=== PATIENT | female | born 1980 | race Caucasian/White ===

== ENCOUNTER 2017-10-20 18:00 | Emergency (ER) | payer OTHER, BC ==
[2017-10-20 18:06] VITALS: BP 146/93
[2017-10-20] MEDS ORDERED: SILVER SULFADIAZINE 1% CREAM 25 GM TP ONE (18:21)
[2017-10-20] MEDS ORDERED: IBUPROFEN 800 MG TABLET PO ONE (18:21)
--- NOTE | 2017-10-20 18:25 | ER Document Report ---
HPI - HPI Patient complains to provider of: burn Onset: This afternoon Onset/Duration: Sudden Quality of pain: Burning Pain Level: 4 Context: Patient states that she was attempting to help move a lawnmower and fell landing with her hand on the exhaust. Patient complains of burn to palmar surface of her left hand. Patient's tetanus immunization is currently up-to- date. Associated Symptoms: Other - Left hand burn Exacerbated by: Movement Relieved by: Denies Similar symptoms previously: No Recently seen / treated by doctor: No - ROS ROS below otherwise negative: Yes Systems Reviewed and Negative: Yes All other systems reviewed and negative - CONSTITUTIONAL Constitutional: DENIES: Fever, Chills - REPRODUCTIVE Reproductive: DENIES: : - MUSCULOSKELETAL Musculoskeletal: REPORTS: Extremity pain - DERM Skin Color: Normal Skin Problems: Burn Past Medical History - General Information source: Patient - Social History Smoking Status: Current Some Day Smoker Smoking Education Provided: Yes Frequency of alcohol use: None Drug Abuse: None Occupation: Retail Family History: Reviewed & Not Pertinent Pulmonary Medical History: Denies: Hx Tuberculosis Neurological Medical History: Reports: Hx Migraine Musculoskeltal Medical History: Reports Hx Arthritis, Reports Hx Fibromyalgia Skin Medical History: Reports Hx Cellulitis Psychiatric Medical History: Reports: Hx Anxiety, Hx Bipolar Disorder, Hx Depression Traumatic Medical History: Reports: Hx Fractures - ankle Past Surgical History: Reports: Hx Gynecologic Surgery, Hx Orthopedic Surgery, Hx Tubal Ligation. Denies: Hx Pacemaker - Immunizations Immunizations up to date: Yes Hx Diphtheria, Pertussis, Tetanus Vaccination: Yes Vertical Provider Document - CONSTITUTIONAL Agree With Documented VS: Yes Exam Limitations: No Limitations General Appearance: WD/WN, No Apparent Distress - INFECTION CONTROL TRAVEL OUTSIDE OF THE [place] IN LAST 30 DAYS: No - HEENT HEENT: Atraumatic, Normocephalic - NECK Neck: Normal Inspection - RESPIRATORY Respiratory: No Respiratory Distress - CARDIOVASCULAR Pulses: Normal: Radial - MUSCULOSKELETAL/EXTREMETIES Musculoskeletal/Extremeties: MAEW, FROM, Tender - Left hand tenderness to palmar surface - NEURO Level of Consciousness: Awake, Alert, Appropriate Motor/Sensory: No Motor Deficit - DERM Integumentary: Warm, Dry Notes: Burn to palmar surface of left hand covering about two thirds surface of the palm, patient with superficial perez to the palmar surface of all fingertips, no blistering to fingers, patient with blistering to palmar burn. Course - Re-evaluation Re-evalutation: 10/20/17 18:[address] Choudhury regarding patient presentation and management. - Vital Signs Vital signs: Temp Pulse Resp BP Pulse Ox 98.6 F 100 20 146/93 H 95 10/20/17 18:05 10/20/17 18:05 10/20/17 18:05 10/20/17 18:05 10/20/17 18:05 Discharge - Discharge Clinical Impression: Burn of hand Qualifiers: Encounter type: initial encounter Burn of hand location: multiple sites Laterality: left Burn degree: partial thickness (2nd degree) Qualified Code(s): T23.292A - Burn of second degree of multiple sites of left wrist and hand, initial encounter Condition: Stable Disposition: HOME, SELF-CARE Instructions: Perez ([facility]), Oral Narcotic Medication ([facility]), Silvadene Cream ([facility] ) Additional Instructions: Return immediately for any new or worsening symptoms Followup with your primary care provider, call tomorrow to make a followup appointment Follow-up with the wound clinic for management of your hand burn. Call Monday for an appointment Prescriptions: Oxycodone HCl/Acetaminophen [Percocet 5-325 mg Tablet] 1 tab PO ASDIR PRN #15 tablet PRN Reason: Silver Sulfadiazine [Silvadene 1% Cream 400 Gm Jar] 1 applic TP BID #1 jar Forms: Smoking Cessation Education, Return to Work Referrals: Wound Care [Provider Group] - 10/23/17
== END 2017-10-20 18:49 | disposition home or self-care (01) ==
LOC: ER 18:00
DX: T23.292A Burn of second degree of multiple sites of left wrist and hand, initial encounter (principal); X19.XXXA Contact with other heat and hot substances, initial encounter; F17.200 Nicotine dependence, unspecified, uncomplicated
CPT/HCPCS: 99283

== ENCOUNTER 2017-10-26 21:56 | Emergency (ER) | payer OTHER, BC ==
--- NOTE | 2017-10-26 23:32 | ER Document Report ---
HPI - HPI Pain Level: 5 Notes: Patient is a 37-year-old female who presents to the ED for recheck of the burn to her left palmar surface that occurred about 6 days ago. Patient states that the area did blister up throughout the palm and she has had pain associated. Patient states that she has been using her Silvadene cream and also contacted her primary care provider who put her on gabapentin. Patient states that the blistering has not opened and she does have an appointment scheduled with the wound clinic on Monday. Patient states that she only has 1 tablet of pain medicine left and was wondering if she can get some work to get her until Monday so she can see her wound clinic provider. No other concerns or complaints at this time. Patient states that she is able to use the hand minimally at this time because of the pain. Patient states that overall her symptoms have greatly improved. Denies any headache, fever, neck pain, URI, sore throat, chest pain, palpitations, syncope, cough, shortness of breath, wheeze, dyspnea, abdominal pain, nausea/vomiting/diarrhea, urinary retention, dysuria, hematuria, numbness/tingling, muscle paralysis/weakness, or rash. - ROS Systems Reviewed and Negative: Yes All other systems reviewed and negative - REPRODUCTIVE LMP: na Reproductive: DENIES: : Past Medical History - Social History Smoking Status: Never Smoker Family History: Reviewed & Not Pertinent Pulmonary Medical History: Denies: Hx Tuberculosis Neurological Medical History: Reports: Hx Migraine Renal/ Medical History: Denies: Hx Peritoneal Dialysis Musculoskeltal Medical History: Reports Hx Arthritis, Reports Hx Fibromyalgia Skin Medical History: Reports Hx Cellulitis Psychiatric Medical History: Reports: Hx Anxiety, Hx Bipolar Disorder, Hx Depression Traumatic Medical History: Reports: Hx Fractures - ankle Past Surgical History: Reports: Hx Gynecologic Surgery, Hx Orthopedic Surgery, Hx Tubal Ligation. Denies: Hx Pacemaker - Immunizations Immunizations up to date: Yes Hx Diphtheria, Pertussis, Tetanus Vaccination: Yes Vertical Provider Document - CONSTITUTIONAL Agree With Documented VS: Yes Notes: PHYSICAL EXAMINATION: GENERAL: Well-appearing, well-nourished and in no acute distress. LUNGS: Breath sounds clear to auscultation bilaterally and equal. No wheezes rales or rhonchi. HEART: Regular rate and rhythm without murmurs, rubs, gallops. Musculoskeletal: Left hand: FROM to passive/active to the fingers/wrist. Strength 5+/5. N/V intact distal. No bony tenderness. Extremities: No cyanosis, clubbing, or edema b/l. Peripheral pulses 2+. Capillary refill less than 3 seconds. NEUROLOGICAL: Cranial nerves grossly intact. Normal speech, normal gait. Normal sensory, motor exams PSYCH: Normal mood, normal affect. SKIN: Lt palmar surface of hand: There is blistering noted, somewhat aged. No surrounding erythema or streaks. No abscess or purulence. No signs of infection. - INFECTION CONTROL TRAVEL OUTSIDE OF THE [place] IN LAST 30 DAYS: No Course - Re-evaluation Re-evalutation: 10/26/17 23:36 Patient is an afebrile, well-hydrated, 37-year-old female who presents to the ED with a continued second-degree partial-thickness burn to the left palmar surface for recheck. Vitals are acceptable. PE is otherwise unremarkable. Patient does not have any significant tachycardia, tachypnea, or hypoxia. She does not have any signs of infection at this time. No labs or imaging warranted at this time based on H&P. Advised patient to continue using her Silvadene cream as directed. I will refill her some more pain medication until she can see the wound clinic on Monday. Toradol given IM today as well. Conservative measures otherwise for symptoms. Recheck with your PCM in 3-5 days or as needed. Return to the ED with any worsening/concerning symptoms otherwise as reviewed discharge. Patient is in agreement. - Vital Signs Vital signs: Temp Pulse Resp BP Pulse Ox 98.5 F 86 18 137/90 H 97 10/26/17 22:38 10/26/17 22:38 10/26/17 22:38 10/26/17 22:38 10/26/17 22:38 Discharge - Discharge Clinical Impression: Burn of palm of hand, left, second degree Qualifiers: Encounter type: initial encounter Qualified Code(s): T23.252A - Burn of second degree of left palm, initial encounter Condition: Stable Disposition: HOME, SELF-CARE Instructions: Galarza ([facility]), Silvadene Cream ([facility]), Soap Cleansing ([facility]), Oral Narcotic Medication ([facility]) Additional Instructions: Keep the skin clean Wash with soap and water Tylenol/ibuprofen if needed Silvadene cream daily Take medication as directed Monitor for any worsening symptoms Recheck with your PCM in 3-5 days Keep your appointment with the wound clinic on Monday Return to the ED with any worsening symptoms and/or development of fever, headache, chest pain, palpitations, syncope, shortness of breath, trouble breathing, abdominal pain, n/v/d, abscess, purulent discharge, red streaks, worsening swelling, or other worsening symptoms that are concerning to you. Prescriptions: Oxycodone HCl/Acetaminophen [Oxycodone-Acetaminophen 5-325] 1 each PO TID PRN # 15 tablet PRN Reason: Forms: Elevated Blood Pressure Referrals: KAILASH BARBA NP-C [Primary Care Provider] - Follow up as needed Wound Care [Provider Group] - 10/31/17
[2017-10-26] MEDS ORDERED: KETOROLAC TROMETHAMINE INJ/PF 30 MG/1 ML SDV IM ONE (23:39)
[2017-10-27 00:12] VITALS: BP 136/95
== END 2017-10-27 00:15 | disposition home or self-care (01) ==
LOC: ER 21:56
DX: Z76.0 Encounter for issue of repeat prescription (principal); T23.252D Burn of second degree of left palm, subsequent encounter; X08.8XXD Exposure to other specified smoke, fire and flames, subsequent encounter
CPT/HCPCS: 99282; 96372; J1885

== ENCOUNTER 2017-11-17 21:59 | Emergency (ER) | payer BC, OTHER ==
[2017-11-18] MEDS ORDERED: LIDOCAINE 1%/EPINEPHRINE INJ 20 ML VIAL INJ ONE (00:55)
[2017-11-18] MEDS ORDERED: HYDROMORPHONE HCL INJ/PF 2 MG/ML AMPULE IM ONE (00:55)
--- NOTE | 2017-11-18 00:56 | ER Document Report ---
ED General - General Chief Complaint: Abscess Stated Complaint: ABSCESS Time Seen by Provider: 11/18/17 00:15 Notes: Patient is a 37 year old female with prior history of abscesses who presents with 3 weeks of an abscess to her right proximal medial thigh. The patient reports that she has seen her doctor regarding this issue, has gone through 2 courses of antibiotics which have caused the area of swelling to go down somewhat but not completely resolved and that he continues to reexpand. She notes associated dull, throbbing, constant pain to the area. Touching the area or walking worsens the pain. Nothing improves the pain. She states this feels very similar to prior abscesses that she has had in the past. She denies any associated fever or constitutional symptoms. TRAVEL OUTSIDE OF THE [place] IN LAST 30 DAYS: No - Related Data Allergies/Adverse Reactions: clindamycin [Clindamycin] Allergy (Severe, Verified 11/18/17 01:12) Anaphylaxis Penicillins Allergy (Mild, Verified 11/18/17 01:12) rash Past Medical History - General Information source: Patient - Social History Smoking Status: Never Smoker Frequency of alcohol use: None Drug Abuse: None Lives with: Family Family History: Reviewed & Not Pertinent Pulmonary Medical History: Denies: Hx Tuberculosis Neurological Medical History: Reports: Hx Migraine Renal/ Medical History: Denies: Hx Peritoneal Dialysis Musculoskeltal Medical History: Reports Hx Arthritis, Reports Hx Fibromyalgia Skin Medical History: Reports Hx Cellulitis Psychiatric Medical History: Reports: Hx Anxiety, Hx Bipolar Disorder, Hx Depression Traumatic Medical History: Reports: Hx Fractures - ankle Past Surgical History: Reports: Hx Gynecologic Surgery, Hx Orthopedic Surgery, Hx Tubal Ligation. Denies: Hx Pacemaker - Immunizations Immunizations up to date: Yes Hx Diphtheria, Pertussis, Tetanus Vaccination: Yes Review of Systems - Review of Systems Notes: Constitutional: Negative for fever. HENT: Negative for sore throat. Eyes: Negative for visual changes. Cardiovascular: Negative for chest pain. Respiratory: Negative for shortness of breath. Gastrointestinal: Negative for abdominal pain, vomiting or diarrhea. Genitourinary: Negative for dysuria. Musculoskeletal: Negative for back pain. Skin: Positive for right leg abscess Neurological: Negative for headaches, weakness or numbness. 10 point ROS negative except as marked above and in HPI. Physical Exam - Vital signs Vitals: Temp Pulse Resp BP Pulse Ox 98.5 F 90 18 127/91 H 95 11/17/17 22:17 11/17/17 22:17 11/17/17 22:17 11/17/17 22:17 11/17/17 22:17 Interpretation: Normal Notes: PHYSICAL EXAMINATION: GENERAL: Well-appearing, well-nourished and in no acute distress. HEAD: Atraumatic, normocephalic. EYES: sclera anicteric, conjunctiva are normal. ENT: Moist mucous membranes. NECK: Normal range of motion LUNGS: Normal work of breathing HEART: 2+ radial pulses bilaterally EXTREMITIES: no pitting or edema. No cyanosis. NEUROLOGICAL: No focal neurological deficits. Moves all extremities spontaneously and on command. PSYCH: Normal mood, normal affect. SKIN: Warm, Dry, normal turgor, 2 x 3 cm abscess in the proximal right medial thigh without surrounding erythema Course - Re-evaluation Re-evalutation: 11/18/17 00:55 Patient presents with a 2 x 3 cm abscess on the right inner thigh which was incised and drained without complication. Patient is otherwise well in appearance, vitals within normal limits, no indication for labs or imaging. At this time will discharge with return precautions and follow-up recommendations. Verbal discharge instructions given a the bedside and opportunity for questions given. Medication warnings reviewed. Patient is in agreement with this plan and has verbalized understanding of return precautions and the need for primary care follow-up in the next 24-72 hours. - Vital Signs Vital signs: Temp Pulse Resp BP Pulse Ox 97.9 F 71 21 H 132/87 H 100 11/18/17 01:17 11/18/17 01:17 11/18/17 01:17 11/18/17 01:17 11/18/17 01:17 Procedures - Incision and Drainage Right Thigh Type: Simple Anesthetic type: 1% Lidocaine mL's of anesthetic: 8 Blade size: 11 I&D procedure: Betadine prep applied, Chlorprep applied, Iodoform packing placed Incision Method: Incision made by scalpel Amount/type of drainage: 3 cc of purulent drainage Discharge - Discharge Clinical Impression: Abscess of right thigh Condition: Good Disposition: HOME, SELF-CARE Additional Instructions: You were seen for an abscess that required drainage. Please clean this area with soap and water twice daily and apply a topical antibiotic. Dress the area after each cleaning. Please return if you develop fever, vomiting, the pain at the site worsens, you notice spreading redness from the area, or you have any other symptoms that are concerning to you. Please remove the packing if it has not fallen out on its own within the next 48 hours. Take the antibiotics as directed. Follow-up with your general doctor within the next 24-48 hours for recheck of the site. Referrals: KAILASH BARBA, PAINTING DEPARTMENT SUPERVISOR-C [Primary Care Provider] - Follow up tomorrow
[2017-11-18] MEDS ORDERED: SULFAMETHOXAZOLE/TRIMETHOPRIM 800-160 MG TABLET PO ONE (02:30)
[2017-11-18 03:00] VITALS: BP 126/80
== END 2017-11-18 02:59 | disposition home or self-care (01) ==
LOC: ER 21:59
PROC: 0H9HXZZ Drainage of Right Upper Leg Skin, External Approach (ICD-10-PCS; principal; 2017-11-17)
DX: L02.415 Cutaneous abscess of right lower limb (principal); Z88.3 Allergy status to other anti-infective agents; Z88.0 Allergy status to penicillin; Z98.51 Tubal ligation status
CPT/HCPCS: 99283; 96372; 10060; A6266; J3490; J1170

== ENCOUNTER 2018-08-12 11:40 | Emergency (ER) | payer BC, OTHER ==
[2018-08-12] MEDS ORDERED: IPRATROPIUM/ALBUTEROL 0.5-2.5 MG/3 ML AMPUL NEB ONE (11:55)
[2018-08-12] MEDS ORDERED: ASPIRIN 81 MG TABLET, CHEWABLE PO ONE (11:56)
[2018-08-12] MEDS ORDERED: PREDNISONE 20 MG TABLET PO ONE (11:56)
--- NOTE | 2018-08-12 11:58 | ER Document Report ---
ED Respiratory Problem - General Chief Complaint: Cough Stated Complaint: COUGH,CONGESTION Time Seen by Provider: 08/12/18 11:46 Primary Care Provider: KAILASH BARBA NP-C [Primary Care Provider] - Follow up tomorrow Mode of Arrival: Ambulatory Information source: Patient Notes: Patient presents complaining of productive cough for the past 5 days with hot and cold flashes and a chest heaviness that is been persistent for the past 5 days. Patient denies any nausea or vomiting. Patient denies any recent long distance travel, bedrest or surgical procedures. Patient does report a history of smoking. TRAVEL OUTSIDE OF THE [place] IN LAST 30 DAYS: No - HPI Patient complains to provider of: Chest pain, Cough, Short of breath Onset: Other - 5 days Duration: Worse/persistent Pain Level: 3 Context: Smoker. denies: Hx asthma, Recent long distance trvl, Recent immobilization, Recent surgery Chest pain/discomfort: Center, Heaviness Associated symptoms: Chest pain/discomfort, Chills, Congestion, Cough, Wheezing. 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 Denies: Hx Pacemaker - Immunizations Immunizations up to date: Yes Hx Diphtheria, Pertussis, Tetanus Vaccination: Yes Review of Systems - Review of Systems Constitutional: Chills, Fever EENT: Nose congestion. denies: Throat pain Cardiovascular: Chest pain Respiratory: Cough, Short of breath, Wheezing Gastrointestinal: No symptoms reported. denies: Abdominal pain, Diarrhea, Nausea, Vomiting Genitourinary: No symptoms reported Female Genitourinary: No symptoms reported Musculoskeletal: No symptoms reported Skin: No symptoms reported Hematologic/Lymphatic: No symptoms reported Neurological/Psychological: No symptoms reported Physical Exam - Vital signs Vitals: Temp Pulse Resp BP Pulse Ox 97.8 F 88 24 H 113/78 99 08/12/18 11:48 08/12/18 11:48 08/12/18 11:48 08/12/18 11:48 08/12/18 11:48 - General General appearance: Appears well, Alert In distress: Mild - HEENT Head: Normocephalic, Atraumatic Eyes: Normal Conjunctiva: Normal Ears: Normal External canal: Normal Nasal: Normal Mouth/Lips: Normal Mucous membranes: Normal Pharynx: Normal. No: Erythema, Tonsillar hypertrophy Neck: Normal, Supple. No: Lymphadenopathy, Meningismus - Respiratory Respiratory status: Tachypnea Chest status: Pain with cough Breath sounds: Nonproductive cough, Wheezing Chest palpation: Normal - Cardiovascular Rhythm: Regular. No: Tachycardia Heart sounds: S1 appreciated, S2 appreciated Murmur: No - Abdominal Inspection: Obese Distension: No distension Bowel sounds: Normal Tenderness: Nontender - Back Back: Normal, Nontender. No: CVA tenderness - Extremities General upper extremity: Normal inspection, Normal strength General lower extremity: Normal inspection, Normal strength - Neurological Neuro grossly intact: Yes Cognition: Normal Bradley Coma Scale Eye Opening: Spontaneous Bradley Coma Scale Verbal: Oriented Isidro Coma Scale Motor: Obeys Commands Bradley Coma Scale Total: 15 - Psychological Associated symptoms: Normal affect, Normal mood - Skin Skin Temperature: Warm Skin Moisture: Dry Skin Color: Normal Course - Re-evaluation Re-evalutation: 08/12/18 14:18 Patient with good air movement bilaterally and decreased wheezing after nebulizer treatment. No concern for pneumonia. Patient does have a positive influenza type A. Patient has had chest pain persistent for the past 4-5 days. Patient PERC negative with a heart score of 2. Consulted with Dr. Champagne regarding patient presentation, EKG reviewed. No additional testing advised at this time. The patient has atypical chest pain as the patient's chest pain is not suggestive of pulmonary embolus, cardiac ischemia, aortic dissection, or o ther serious etiology. Given the extremely low risk of these diagnoses for the test in evaluation for these possibilities does not appear to be indicated at this time. Patient has been instructed to return if the symptoms worsen or change in any way. - Vital Signs Vital signs: Temp Pulse Resp BP Pulse Ox 98.3 F 76 16 102/60 98 08/12/18 15:07 08/12/18 15:07 08/12/18 15:07 08/12/18 15:07 08/12/18 15:07 - Laboratory Result Diagrams: 08/12/18 13:13 08/12/18 13:13 Laboratory results interpreted by me: 08/12/18 08/12/18 13:13 13:13 RDW 14.4 H Total Protein 5.2 L Albumin 3.2 L Labs- Entire Visit 08/12/18 08/12/18 08/12/18 12:15 13:13 13:13 WBC 9.6 RBC 4.28 Hgb 13.2 Hct 38.9 MCV 91 MCH 30.8 MCHC 33.9 RDW 14.4 H Plt Count 274 Seg Neutrophils % 70.7 Lymphocytes % 19.7 Monocytes % 7.6 Eosinophils % 1.4 Basophils % 0.6 Absolute Neutrophils 6.8 Absolute Lymphocytes 1.9 Absolute Monocytes 0.7 Absolute Eosinophils 0.1 Absolute Basophils 0.1 Sodium 138.3 Potassium 3.7 Chloride 102 Carbon Dioxide 29 Anion Gap 7 BUN 8 Creatinine 0.59 Est GFR ( Amer) > 60 Est GFR (Non-Af Amer) > 60 Glucose 92 Calcium 8.6 Total Bilirubin 0.2 Direct Bilirubin 0.2 Neonat Total Bilirubin Not Reportable Neonat Direct Bilirubin Not Reportable Neonat Indirect Bili Not Reportable AST 18 ALT 30 Alkaline Phosphatase 52 Creatine Kinase 38 CK-MB (CK-2) Troponin I Total Protein 5.2 L Albumin 3.2 L Influenza A (Rapid) POSITIVE Influenza B (Rapid) NEGATIVE 08/12/18 13:13 WBC RBC Hgb Hct MCV MCH MCHC RDW Plt Count Seg Neutrophils % Lymphocytes % Monocytes % Eosinophils % Basophils % Absolute Neutrophils Absolute Lymphocytes Absolute Monocytes Absolute Eosinophils Absolute Basophils Sodium Potassium Chloride Carbon Dioxide Anion Gap BUN Creatinine Est GFR ( Amer) Est GFR (Non-Af Amer) Glucose Calcium Total Bilirubin Direct Bilirubin Neonat Total Bilirubin Neonat Direct Bilirubin Neonat Indirect Bili AST ALT Alkaline Phosphatase Creatine Kinase CK-MB (CK-2) 0.32 Troponin I < 0.012 Total Protein Albumin Influenza A (Rapid) Influenza B (Rapid) - Diagnostic Test Radiology reviewed: Image reviewed, Reports reviewed - EKG Interpretation by Me EKG shows normal: Sinus rhythm Rate: Normal Additional EKG results interpreted by me: 08/12/18 14:19 QTC 474 Discharge - Discharge Clinical Impression: Influenza A, Wheezing Chest pain Qualifiers: Chest pain type: unspecified Qualified Code(s): R07.9 - Chest pain, unspecified Condition: Stable Disposition: HOME, SELF-CARE Instructions: Acetaminophen, Influenza ([facility]), Inhaled Bronchodilators ([facility]), Steroid Medication Additional Instructions: Return immediately for any new or worsening symptoms Followup with your primary care provider, call tomorrow to make a followup appointment Prescriptions: Benzonatate [Tessalon Perle 100 mg Capsule] 100 mg PO Q8HP PRN #20 cap PRN Reason: Albuterol Sulfate [Proair Hfa Inhalation Aerosol 8.5 gm Mdi] 2 puff IH Q4 PRN #1 mdi PRN Reason: Inhaler,Assist Device,Accesory [Optichamber] 1 each MC Q4 PRN #1 each PRN Reason: Prednisone [Deltasone 10 mg Tablet] 10 mg PO ASDIR PRN #21 tablet PRN Reason: Forms: Return to Work Referrals: KAILASH BARBA NP-C [Primary Care Provider] - Follow up tomorrow
[2018-08-12 12:46] LABS: A TYPE INFLUENZA AG POSITIVE (NEGATIVE)
[2018-08-12 12:47] LABS: B INFLUENZA AG NEGATIVE (NEGATIVE)
--- NOTE | 2018-08-12 13:03 | RADIOLOGY REPORT (SQ) ---
EXAM DESCRIPTION: CHEST 2 VIEWS COMPLETED DATE/TIME: 08/12/2018 12:52 pm REASON FOR STUDY: cp, cough COMPARISON: None. TECHNIQUE: Frontal and lateral radiographic views of the chest acquired. NUMBER OF VIEWS: Two view. LIMITATIONS: [place]. FINDINGS: LUNGS AND PLEURA: Low lung volumes. Mild areas of subsegmental atelectasis. Increased de nsity in the lung robert is felt to be summation of tissues. MEDIASTINUM AND HILAR STRUCTURES: No masses or contour abnormalities. HEART AND VASCULAR STRUCTURES: Heart normal size. No evidence for failure. BONES: No acute findings. HARDWARE: None in the chest. OTHER: No other significant finding. IMPRESSION: No acute cardiopulmonary disease suspected. TECHNICAL DOCUMENTATION: JOB ID: [id number] [employer]- All Rights Reserved Reading location - IP/workstation name: [email or web address]
[2018-08-12] MEDS ORDERED: ALBUTEROL SULFATE 0.083% NEB 2.5 MG/3 ML AMPUL NEB ONE (13:26)
[2018-08-12 13:31] LABS: ABSOLUTE BASOPHILS # (AUTO) 0.1 10^3/uL (0.0-0.2); ABSOLUTE EOSINOPHILS # (AUTO) 0.1 10^3/uL (0.0-0.6); ABSOLUTE LYMPHOCYTES (AUTO) 1.9 10^3/uL (0.5-4.7); ABSOLUTE MONOCYTES (AUTO) 0.7 10^3/uL (0.1-1.4); ABSOLUTE NEUT (AUTO) 6.8 10^3/uL (1.7-8.2); BASOPHILS % (AUTO) 0.6 % (0-2); EOSINOPHILS % (AUTO) 1.4 % (0-6); HEMATOCRIT 38.9 % (36.0-47.0); HEMOGLOBIN 13.2 g/dL (12.0-15.5); LYMPHOCYTES % (AUTO) 19.7 % (13-45); MEAN CORPUSCULAR HEMOGLOBIN 30.8 pg (27.0-33.4); MEAN CORPUSCULAR HGB CONC 33.9 g/dL (32.0-36.0); MEAN CORPUSCULAR VOLUME 91 fl (80-97); MONOCYTES % (AUTO) 7.6 % (3-13); PLATELET COUNT 274 10^3/uL (150-450); RED BLOOD COUNT 4.28 10^6/uL (3.72-5.28); RED CELL DISTRIBUTION WIDTH 14.4 % (11.5-14.0); SEGMENTED NEUTROPHILS % (AUTO) 70.7 % (42-78); TOTAL CELLS COUNTED % (AUTO) 100 %; WHITE BLOOD COUNT 9.6 10^3/uL (4.0-10.5)
[2018-08-12 13:53] LABS: ALANINE AMINOTRANSFERASE 30 U/L (9-52); ALBUMIN 3.2 g/dL (3.5-5.0); ALKALINE PHOSPHATASE 52 U/L (38-126); ANION GAP 7 (5-19); ASPARTATE AMINO TRANSFERASE 18 U/L (14-36); BILIRUBIN,DIRECT 0.2 mg/dL (0.0-0.4); BILIRUBIN,TOTAL 0.2 mg/dL (0.2-1.3); BLOOD UREA NITROGEN 8 mg/dL (7-20); CALCIUM 8.6 mg/dL (8.4-10.2); CARBON DIOXIDE 29 mmol/L (22-30); CHLORIDE 102 mmol/L (98-107); CREATINE KINASE 38 U/L (30-135); GLUCOSE 92 mg/dL (75-110); POTASSIUM 3.7 mmol/L (3.6-5.0); SODIUM 138.3 mmol/L (137-145); TOTAL PROTEIN 5.2 g/dL (6.3-8.2)
[2018-08-12 14:03] LABS: CREATINE KINASE MB 0.32 ng/mL (<4.55)
[2018-08-12 14:04] LABS: TROPONIN I < 0.012 ng/mL
[2018-08-12 15:14] VITALS: BP 102/60
--- NOTE | 2018-08-12 23:46 | EKG REPORT ---
SEVERITY:- BORDERLINE ECG - SINUS RHYTHM BORDERLINE T ABNORMALITIES, DIFFUSE LEADS : Confirmed by: Angie Avalos 12-Aug-2018 23:46:00
== END 2018-08-12 15:55 | disposition home or self-care (01) ==
LOC: ER 11:40
DX: J10.1 Influenza due to other identified influenza virus with other respiratory manifestations (principal); R05 Cough; R07.89 Other chest pain; R06.02 Shortness of breath; R50.9 Fever, unspecified; R06.2 Wheezing; F17.200 Nicotine dependence, unspecified, uncomplicated; Z88.0 Allergy status to penicillin; Z87.892 Personal history of anaphylaxis; Z88.1 Allergy status to other antibiotic agents
CPT/HCPCS: 93005; 94640 ×2; 99284; 36415; 87040; 87070; 87205; 82553; 82550; 85025; 80053; 84484; 87804; 71046; 93010; J7512; J7620

== ENCOUNTER 2020-04-23 09:56 | Emergency (ER) | payer OTHER ==
[2020-04-23 10:05] VITALS: BP 141/85
--- NOTE | 2020-04-23 10:39 | ER Document Report ---
ED ENT - General Chief Complaint: Ear Pain Stated Complaint: EAR PAIN,BODY ACHES Time Seen by Provider: 04/23/20 10:08 Primary Care Provider: KAILASH BARBA NP-C [Primary Care Provider] - Follow up as needed Mode of Arrival: Ambulatory Information source: Patient Notes: 39-year-old female past medical history significant for hypertension, arthritis, depression, anxiety, recent gastric sleeve, presents to the emergency room complaining of bilateral ear pain for the past 3 days. Left worse than right. Complains of postnasal drip and sinus congestion. States has been taking ibuprofen with some relief. Last dose 3 AM. States she had a low-grade fever of 99 yesterday. States recently had an ear infection approximately 6 weeks ago. Was treated with 2 rounds of antibiotics most recently with Levaquin for 14 days which she states alleviated her symptoms. Denies any recent travel. No cough, no shortness of breath, no difficulty breathing. No COVID-19 exposure. TRAVEL OUTSIDE OF THE [place] IN LAST 30 DAYS: No - Related Data Allergies/Adverse Reactions: clindamycin [Clindamycin] Allergy (Severe, Verified 04/23/20 10:07) Anaphylaxis Penicillins Allergy (Mild, Verified 04/23/20 10:07) rash Home Medications: cymbalta, omeprazole, dicyclomine Past Medical History - General Information source: Patient - Social History Smoking Status: Current Every Day Smoker Chew tobacco use (# tins/day): No Frequency of alcohol use: None Drug Abuse: None Family History: Reviewed & Not Pertinent Patient has homicidal ideation: No - Past Medical History Cardiac Medical History: Reports: Hx Hypertension Pulmonary Medical History: Denies: Hx Tuberculosis Neurological Medical History: Reports: Hx Migraine Renal/ Medical History: Denies: Hx Peritoneal Dialysis GI Medical History: Reports: Hx Gastroesophageal Reflux Disease Musculoskeletal Medical History: Reports Hx Arthritis, Reports Hx Fibromyalgia Skin Medical History: Reports Hx Cellulitis Psychiatric Medical History: Reports: Hx Anxiety, Hx Bipolar Disorder, Hx Depre ssion Traumatic Medical History: Reports: Hx Fractures - ankle Past Surgical History: Reports: Hx Abdominal Surgery - gastric sleeve 2020, Hx Gynecologic Surgery, Hx Orthopedic Surgery, Hx Tubal Ligation. Denies: Hx Pacemaker - Immunizations Immunizations up to date: Yes Hx Diphtheria, Pertussis, Tetanus Vaccination: Yes Review of Systems - Review of Systems Constitutional: Fever EENT: Ear pain, Nose congestion, Sinus discharge Cardiovascular: No symptoms reported Respiratory: No symptoms reported Gastrointestinal: No symptoms reported Musculoskeletal: No symptoms reported Skin: No symptoms reported Neurological/Psychological: No symptoms reported -: Yes All other systems reviewed and negative Physical Exam - Vital signs Vitals: Temp BP 98.2 F 141/85 H 04/23/20 10:04 04/23/20 10:04 - General General appearance: Appears well, Alert In distress: Mild - HEENT Head: Normocephalic, Atraumatic Eyes: Normal Pupils: PERRL External canal: Normal Tympanic membrane: Injected, Retracted - Bilateral tympanic membranes are dull and retracted with clear fluid noted bilaterally.. No: Loss of landmarks Sinus: Normal Nasal: Normal Mucous membranes: Normal Pharynx: Normal Neck: Normal - Respiratory Respiratory status: No respiratory distress Chest status: Nontender Breath sounds: Normal Chest palpation: Normal - Cardiovascular Rhythm: Regular Heart sounds: Normal auscultation Murmur: No - Back Back: Normal, Nontender - Neurological Neuro grossly intact: Yes Cognition: Normal Orientation: AAOx4 [place] Coma Scale Eye Opening: Spontaneous [place] Coma Scale Verbal: Oriented [place] Coma Scale Motor: Obeys Commands [place] Coma Scale Total: 15 Speech: Normal Motor strength normal: LUE, RUE, LLE, RLE Sensory: Normal - Skin Skin Temperature: Warm Skin Moisture: Dry Skin Color: Normal Course - Re-evaluation Re-evalutation: 04/23/20 10:37 Afebrile, nontoxic-appearing, stable vital signs. Reviewed diagnosis with patient. Counseled on the importance of using her Flonase daily as discussed. Recommend use of Mucinex along with the Flonase. Outpatient follow-up primary care physician if not improving in 2 to 3 days. Patient was given strict return to the emergency room guidelines. Return for any new or worsening symptoms. All questions were answered. Patient verbalized understanding and agrees with plan of care. 04/23/20 10:44 - Vital Signs Vital signs: Temp Pulse Resp BP Pulse Ox 98.2 F 141/85 H 04/23/20 10:04 04/23/20 10:04 Discharge - Discharge Clinical Impression: Nasal congestion, Dysfunction of both eustachian tubes Condition: Stable Disposition: HOME, SELF-CARE Instructions: Upper Respiratory Illness ([facility]) Additional Instructions: Use your Flonase daily as prescribed. [id number] Mucinex. Follow-up with your primary care physician if not improving in 2 to 3 days. Return to the emergency room for any new or worsening symptoms. Referrals: KAILASH BARBA NP-C [Primary Care Provider] - Follow up as needed
== END 2020-04-23 10:55 | disposition home or self-care (01) ==
LOC: ER 09:56
DX: H69.93 Unspecified Eustachian tube disorder, bilateral (principal); H92.03 Otalgia, bilateral; R09.81 Nasal congestion; R09.82 Postnasal drip; R50.9 Fever, unspecified; I10 Essential (primary) hypertension; F17.200 Nicotine dependence, unspecified, uncomplicated; F32.9 Major depressive disorder, single episode, unspecified; F41.9 Anxiety disorder, unspecified; K21.9 Gastro-esophageal reflux disease without esophagitis; Z79.899 Other long term (current) drug therapy; Z98.84 Bariatric surgery status; Z87.892 Personal history of anaphylaxis; Z88.1 Allergy status to other antibiotic agents; Z88.0 Allergy status to penicillin
CPT/HCPCS: 99282